=== PATIENT | female | born 1955 | race Two or more races ===

== ENCOUNTER 2017-07-09 08:12 | Outpatient (CLI) | payer OTHER ==
[~2017-07-09 08:12] MED LIST: NO TOMA MED
== END 2017-07-09 08:25 | disposition home or self-care (01) ==
LOC: TOM 08:12
DX: J44.9 Chronic obstructive pulmonary disease, unspecified (principal)

== ENCOUNTER 2017-10-11 11:11 | Emergency (ER) | payer OTHER ==
[~2017-10-11] VITALS: Ht 167.6 cm; Wt 92.1 kg
== END 2017-10-11 16:01 | disposition home or self-care (01) ==
LOC: ER 11:11
DX: I10 Essential (primary) hypertension (principal); R51 Headache

== ENCOUNTER 2018-10-16 08:37 | Outpatient (CLI) | payer OTHER | END 2018-10-16 08:49 | disposition home or self-care (01) | LOC: NUCLEAR 08:37 | DX: M79.604 Pain in right leg (principal); R25.2 Cramp and spasm; I73.9 Peripheral vascular disease, unspecified ==

== ENCOUNTER 2018-10-16 10:41 | Outpatient (CLI) | payer OTHER | END 2018-10-16 10:59 | disposition home or self-care (01) | LOC: MAMO-SONO 10:41 | DX: N64.4 Mastodynia (principal) ==

== ENCOUNTER 2018-10-17 09:12 | Outpatient (CLI) | payer OTHER | END 2018-10-17 09:26 | disposition home or self-care (01) | LOC: NUCLEAR 09:12 | DX: M79.604 Pain in right leg (principal); R25.2 Cramp and spasm ==

== ENCOUNTER 2019-02-18 09:05 | Outpatient (CLI) | payer OTHER | END 2019-02-18 09:09 | disposition home or self-care (01) | LOC: RAD 09:05 | DX: M25.561 Pain in right knee (principal) ==

== ENCOUNTER → 2019-02-18 | Outpatient (CLI) | payer OTHER | END | disposition home or self-care (01) | LOC: NUCLEAR 15:29 | DX: I73.9 Peripheral vascular disease, unspecified (principal) ==

== ENCOUNTER 2019-06-11 07:45 | Outpatient (CLI) | payer OTHER | END 2019-06-11 07:58 | disposition home or self-care (01) | LOC: SONOGRAMA 07:45 | DX: N83.202 Unspecified ovarian cyst, left side (principal); R16.0 Hepatomegaly, not elsewhere classified ==

== ENCOUNTER 2019-10-23 16:53 | Outpatient (CLI) | payer OTHER | END 2019-10-23 17:11 | disposition home or self-care (01) | LOC: RAD 16:53 | PROVIDERS: ATTEND Physical Medicine & Rehabilitation Sports Medicine | DX: M17.0 Bilateral primary osteoarthritis of knee (principal) ==

== ENCOUNTER 2020-06-02 17:01 | Outpatient (CLI) | payer OTHER | END 2020-06-02 17:10 | disposition home or self-care (01) | LOC: LAB 17:01 | DX: N20.0 Calculus of kidney (principal) ==

== ENCOUNTER 2020-06-04 10:24 | Outpatient (CLI) | payer OTHER | END 2020-06-04 10:28 | disposition home or self-care (01) | LOC: TOM 10:24 | DX: N28.89 Other specified disorders of kidney and ureter (principal); R19.03 Right lower quadrant abdominal swelling, mass and lump; K68.9 Other disorders of retroperitoneum; I20.8 Other forms of angina pectoris; K57.90 Diverticulosis of intestine, part unspecified, without perforation or abscess without bleeding; I70.8 Atherosclerosis of other arteries ==

== ENCOUNTER 2020-12-08 10:32 | Outpatient (CLI) | payer OTHER | END 2020-12-08 10:46 | disposition home or self-care (01) | LOC: MAMO-SONO 10:32 | PROVIDERS: ATTEND Internal Medicine | DX: R92.1 Mammographic calcification found on diagnostic imaging of breast (principal); Z12.31 Encounter for screening mammogram for malignant neoplasm of breast; N64.59 Other signs and symptoms in breast ==

== ENCOUNTER → 2020-12-08 13:39 | Outpatient (CLI) | payer OTHER | END | disposition home or self-care (01) | LOC: NUCLEAR 13:39 | PROVIDERS: ATTEND Internal Medicine | DX: M81.0 Age-related osteoporosis without current pathological fracture (principal); Z13.820 Encounter for screening for osteoporosis ==

== ENCOUNTER 2021-02-23 13:20 | Outpatient (CLI) | payer OTHER | END 2021-02-23 13:27 | disposition home or self-care (01) | LOC: SONOGRAMA 13:20 | PROVIDERS: ATTEND Obstetrics & Gynecology Gynecologic Oncology | DX: R19.07 Generalized intra-abdominal and pelvic swelling, mass and lump (principal) ==

== ENCOUNTER 2021-02-25 15:46 | Outpatient (CLI) | payer OTHER | END 2021-02-25 16:01 | disposition home or self-care (01) | LOC: RAD 15:46 | DX: M54.59 Other low back pain (principal); M54.2 Cervicalgia; M53.1 Cervicobrachial syndrome ==

== ENCOUNTER 2023-03-01 09:34 | Outpatient (CLI) | payer OTHER | END 2023-03-01 09:42 | disposition home or self-care (01) | LOC: RAD 09:34 | PROVIDERS: ATTEND Dermatology | DX: J18.0 Bronchopneumonia, unspecified organism (principal); K76.0 Fatty (change of) liver, not elsewhere classified ==

== ENCOUNTER 2023-03-21 12:51 | Outpatient (CLI) | payer OTHER | END 2023-03-21 13:36 | disposition home or self-care (01) | LOC: NUCLEAR 12:51 | PROVIDERS: ATTEND Family Medicine | DX: M81.0 Age-related osteoporosis without current pathological fracture (principal) ==